=== PATIENT | male | born 1975 | race Caucasian/White ===

== ENCOUNTER 2018-11-24 07:11 | Inpatient (IN) | payer OTHER ==
[2018-11-24] MEDS: PIPER-TAZO 3.375 GM IV (PMX) 100 ML IVPB (07:33)
[2018-11-24 08:15] LABS: ADD MAN DIFF? NO
[2018-11-24] MEDS: CLINDAMYCIN 900 MG/D5W (PMX) 50 ML IVPB ×3 (08:16→20:52)
[2018-11-24] MEDS: SODIUM CHLORIDE 0.9% 1L BAG IV* (08:17)
[2018-11-24 08:20] LABS: WHITE BLOOD COUNT 9.7 10^3/ul (4.8-10.8)
[2018-11-24 08:20] LABS: BASOPHIL # 0.1 10^3/ul (0.0-0.1); BASOPHILS % 0.5 % (0.0-2.0); EOSINOPHILS # 0.2 10^3/ul (0.0-0.5); EOSINOPHILS % 1.7 % (0.0-7.0); HEMOGLOBIN 10.7 g/dl (14.0-18.0); LYMPHOCYTES # 2.8 10^3/ul (0.8-2.9); LYMPHOCYTES % 29.1 % (15.0-51.0); MEAN CORPUSCULAR HEMOGLOBIN 25.5 pg (29.0-33.0); MEAN CORPUSCULAR HGB CONC 31.5 g/dl (32.0-37.0); MEAN CORPUSCULAR VOLUME 81.1 fl (82.0-101.0); MEAN PLATELET VOLUME 9.1 fl (7.4-10.4); MONOCYTE # 0.6 10^3/ul (0.3-0.9); MONOCYTES % 6.3 % (0.0-11.0); NEUTROPHILS % 61.9 % (39.0-77.0); PLATELET COUNT 300 10^3/UL (140-415); RED BLOOD COUNT 4.19 10^6/ul (4.70-6.10); RED CELL DISTRIBUTION WIDTH 14.5 % (11.5-14.5)
[2018-11-24 08:39] LABS: ALANINE AMINOTRANSFERASE 55 IU/L (13-69); ALBUMIN 3.4 g/dl (3.3-4.9); ALKALINE PHOSPHATASE 77 IU/L (42-121); ANION GAP 11 (5-13); ASPARTATE AMINO TRANSFERASE 34 IU/L (15-46); BILIRUBIN,INDIRECT 0.2 mg/dl (0-1.1); BILIRUBIN,TOTAL 0.2 mg/dl (0.2-1.3); BLOOD UREA NITROGEN 13 mg/dl (7-20); CALCIUM 8.7 mg/dl (8.4-10.2); CARBON DIOXIDE 24 mmol/L (21-31); CHLORIDE 103 mmol/L (97-110); CREATININE 0.69 mg/dl (0.61-1.24); Estimated GFR > 60 mL/min (>60); GLUCOSE 142 mg/dl (70-220); POTASSIUM 3.5 mmol/L (3.5-5.1); SODIUM 138 mmol/L (135-144); TOTAL PROTEIN 7.6 g/dl (6.1-8.1)
[2018-11-24 08:45] LABS: ETHANOL < 10.0 mg/dl (0-0)
[2018-11-24 09:15] LABS: INR 1.02; PROTIME 13.5 Sec (11.9-14.9); PT RATIO 1.1
[2018-11-24 09:16] LABS: PARTIAL THROMBOPLASTIN TIME 28.9 Sec (23.0-35.0)
[2018-11-24 09:28] LABS: CHOLESTEROL 130 mg/dl (100-200)
[2018-11-24 09:28] LABS: CHOL/HDL RATIO 7.2 RATIO; HDL CHOLESTEROL 18 mg/dl (27-67); LDL CHOLESTEROL,CALCULATED 92 mg/dl; TRIGLYCERIDES 100 mg/dl (0-149)
[2018-11-24] MEDS ORDERED: ACETAMINOPHEN 325 MG TAB PO (09:30)
[2018-11-24] MEDS ORDERED: ONDANSETRON 4 MG INJ IV ×2 (09:30→10:00)
[2018-11-24] MEDS ORDERED: VANCOMYCIN IV PER PHARMACY XX (10:00)
[2018-11-24] MEDS ORDERED: NACL 0.9% 3 ML SYG IV (10:00)
[2018-11-24] MEDS: VANCOMYCIN 1 GM (PMX) 250 ML IVPB (10:09)
[2018-11-24] MEDS: HYDROmorphONE 1 MG/ML SYG IV (10:26)
[2018-11-24] MEDS: ONDANSETRON 4 MG INJ IV (10:26)
[2018-11-24] MEDS ORDERED: VANCOMYCIN 1 GM in 250 ML IVPB (12:00)
[2018-11-24 12:29] LABS: C-REACTIVE PROTEIN 7.6 mg/dl (0.0-0.9)
[2018-11-24 13:21] LABS: ERYTHROCYTE SEDIMENTATION RATE 75 mm/Hr (0-15)
[2018-11-24] MEDS: MEROPENEM 1 GM/50ML(PMX) 50 ML IVPB ×2 (14:00→23:01)
[2018-11-24] MEDS: METHADONE 5 MG TAB PO ×3 (14:00→21:24)
[2018-11-24] MEDS: VANCOMYCIN 1 GM 250 ML IVPB (15:36)
[2018-11-24] MEDS: INSULIN ASPART [NOVOLOG] 3 ML PEN SC ×3 (15:37→20:59)
[2018-11-24 15:54] LABS: LACTIC ACID 1.8 mmol/L (0.5-2.0)
[2018-11-24 15:54] LABS: IRON 24 ug/dl (35-150)
[2018-11-24 16:03] LABS: % IRON SATURATION 9 % SAT (22-52); TOTAL IRON BINDING CAPACITY 279 ug/dl (241-421)
[2018-11-24 16:39] LABS: PROCALCITONIN 0.07 ng/mL (0.00-0.10)
[2018-11-24] MEDS: LIDOCAINE 1% (MPF) 5 ML VIAL SC (17:22)
[2018-11-24] MEDS: SOD CHLORIDE 0.9% 100 ML (18:28)
[2018-11-24] MEDS: IOHEXOL 100 ML (18:28)
[2018-11-25] MEDS ORDERED: VANCOMYCIN HCL 1.25 GM in SOD CHLORIDE 0.9% 250 ML IVPB
[2018-11-25] MEDS: INSULIN ASPART [NOVOLOG] 3 ML PEN SC ×6 (01:00→21:00)
[2018-11-25] MEDS: ACCU-CHEK XX (01:05)
[2018-11-25] MEDS: VANCOMYCIN HCL 1.25 GM in SOD CHLORIDE 0.9% 250 ML IVPB ×3 (03:34→21:45)
[2018-11-25 07:48] LABS: ADD MAN DIFF? NO
[2018-11-25 07:52] LABS: BASOPHILS % 0.4 % (0.0-2.0); EOSINOPHILS # 0.1 10^3/ul (0.0-0.5); EOSINOPHILS % 0.7 % (0.0-7.0); HEMATOCRIT 33.6 % (42.0-52.0); HEMOGLOBIN 10.8 g/dl (14.0-18.0); LYMPHOCYTES # 2.1 10^3/ul (0.8-2.9); LYMPHOCYTES % 25.1 % (15.0-51.0); MEAN CORPUSCULAR HEMOGLOBIN 25.8 pg (29.0-33.0); MEAN CORPUSCULAR HGB CONC 32.1 g/dl (32.0-37.0); MEAN CORPUSCULAR VOLUME 80.2 fl (82.0-101.0); MEAN PLATELET VOLUME 9.1 fl (7.4-10.4); MONOCYTE # 0.5 10^3/ul (0.3-0.9); MONOCYTES % 5.9 % (0.0-11.0); NEUTROPHIL # 5.7 10^3/ul (1.6-7.5); NEUTROPHILS % 67.1 % (39.0-77.0); PLATELET COUNT 284 10^3/UL (140-415); RED BLOOD COUNT 4.19 10^6/ul (4.70-6.10); RED CELL DISTRIBUTION WIDTH 14.3 % (11.5-14.5)
[2018-11-25 07:52] LABS: WHITE BLOOD COUNT 8.4 10^3/ul (4.8-10.8)
[2018-11-25 08:19] LABS: ALANINE AMINOTRANSFERASE 53 IU/L (13-69); ALBUMIN 3.3 g/dl (3.3-4.9); ALBUMIN/GLOBULIN RATIO 0.82; ALKALINE PHOSPHATASE 77 IU/L (42-121); ANION GAP 6 (5-13); ASPARTATE AMINO TRANSFERASE 35 IU/L (15-46); BILIRUBIN,INDIRECT 0.2 mg/dl (0-1.1); BILIRUBIN,TOTAL 0.2 mg/dl (0.2-1.3); BLOOD UREA NITROGEN 7 mg/dl (7-20); CALCIUM 8.7 mg/dl (8.4-10.2); CARBON DIOXIDE 28 mmol/L (21-31); CHLORIDE 108 mmol/L (97-110); Estimated GFR > 60 mL/min (>60); GLUCOSE 128 mg/dl (70-220); MAGNESIUM 2.2 mg/dl (1.7-2.5); PHOSPHORUS 3.3 mg/dl (2.5-4.9); SODIUM 142 mmol/L (135-144); TOTAL PROTEIN 7.3 g/dl (6.1-8.1)
[2018-11-25] MEDS: MEROPENEM 1 GM/50ML(PMX) 50 ML IVPB ×2 (08:33→21:46)
[2018-11-25] MEDS: ENOXAPARIN 40 MG/0.4 ML SYG SC (08:34)
[2018-11-25] MEDS: METHADONE 5 MG TAB PO (09:22)
[2018-11-25] MEDS: SOD CHLORIDE 0.9% 1,000 ML IV (12:08)
[2018-11-25] MEDS: CLINDAMYCIN 900 MG/D5W (PMX) 50 ML IVPB ×2 (14:21→23:05)
[2018-11-25] MEDS: LORAZEPAM 2 MG INJ IV (17:00)
[2018-11-25] MEDS ORDERED: LORAZEPAM 2 MG INJ IV (17:30)
[2018-11-25] MEDS: METHADONE 10 MG TAB PO (18:15)
[2018-11-25] MEDS ORDERED: FENTAnyl 50 MCG/ML VIAL ×2 (18:17→18:27)
[2018-11-25] MEDS ORDERED: MIDAZOLAM 1 MG/ML 2 ML INJ (18:17)
[2018-11-25] MEDS ORDERED: SEVOFLURANE 15 MIN (18:30)
[2018-11-25] MEDS: POLYMYXIN B 500000 UNIT INJ (18:43)
[2018-11-25] MEDS: BACITRACIN 50000 UNITS INJ (18:43)
[2018-11-25] MEDS ORDERED: ETOMIDATE 20 MG INJ (19:01)
[2018-11-25] MEDS ORDERED: LIDOCAINE 2% (SDV) 5 ML INJ (19:01)
[2018-11-25] MEDS ORDERED: PROPOFOL 20 ML (19:02)
[2018-11-25] MEDS ORDERED: ONDANSETRON 4 MG INJ (19:02)
[2018-11-25] MEDS ORDERED: ROPIVACAINE 0.5 % 30 ML VIAL (19:03)
[2018-11-25] MEDS ORDERED: METOCLOPRAMIDE 10 MG INJ IV (20:00)
[2018-11-25] MEDS ORDERED: FENTAnyl 50 MCG/ML VIAL IV ×2 (20:00)
[2018-11-25] MEDS ORDERED: ONDANSETRON 4 MG INJ IV (20:00)
[2018-11-25] MEDS ORDERED: NALOXONE (0.4 MG/ML) INJ IV (20:00)
[2018-11-25] MEDS ORDERED: HYDROmorphONE 1 MG/5 ML IV SYRINGE IV ×3 (20:00)
[2018-11-25] MEDS ORDERED: DIPHENHYDRAMINE 50 MG INJ IV (20:00)
[2018-11-25] MEDS ORDERED: MEPERIDINE 25 MG INJ IV (20:00)
[2018-11-25 21:39] LABS: VANCOMYCIN,TROUGH 9.2 ug/ml (10.0-20.0)
[2018-11-26] MEDS ORDERED: DEXTROSE 50% 50 ML SYRINGE IV ×2 (01:00)
[2018-11-26] MEDS ORDERED: GLUCOSE GEL 15 GRAM TUBE PO ×2 (01:00)
[2018-11-26] MEDS ORDERED: GLUCOSE GEL 15 GRAM TUBE BUCCAL (01:00)
[2018-11-26] MEDS ORDERED: GLUCAGON 1 MG INJ IM (01:00)
[2018-11-26] MEDS: ACCU-CHEK XX ×2 (01:25)
[2018-11-26] MEDS: VANCOMYCIN HCL 1.25 GM in SOD CHLORIDE 0.9% 250 ML IVPB ×3 (04:45→20:48)
[2018-11-26 05:36] LABS: ADD MAN DIFF? NO
[2018-11-26 05:46] LABS: BASOPHIL # 0.1 10^3/ul (0.0-0.1); BASOPHILS % 0.4 % (0.0-2.0); EOSINOPHILS # 0.1 10^3/ul (0.0-0.5); EOSINOPHILS % 0.7 % (0.0-7.0); HEMATOCRIT 33.6 % (42.0-52.0); HEMOGLOBIN 10.8 g/dl (14.0-18.0); LYMPHOCYTES # 2.6 10^3/ul (0.8-2.9); LYMPHOCYTES % 22.6 % (15.0-51.0); MEAN CORPUSCULAR HEMOGLOBIN 25.7 pg (29.0-33.0); MEAN CORPUSCULAR HGB CONC 32.1 g/dl (32.0-37.0); MEAN CORPUSCULAR VOLUME 79.8 fl (82.0-101.0); MEAN PLATELET VOLUME 9.6 fl (7.4-10.4); MONOCYTE # 0.5 10^3/ul (0.3-0.9); MONOCYTES % 4.5 % (0.0-11.0); NEUTROPHIL # 8.3 10^3/ul (1.6-7.5); NEUTROPHILS % 70.9 % (39.0-77.0); PLATELET COUNT 293 10^3/UL (140-415); RED BLOOD COUNT 4.21 10^6/ul (4.70-6.10); RED CELL DISTRIBUTION WIDTH 14.2 % (11.5-14.5)
[2018-11-26 05:46] LABS: WHITE BLOOD COUNT 11.7 10^3/ul (4.8-10.8)
[2018-11-26] MEDS: CLINDAMYCIN 900 MG/D5W (PMX) 50 ML IVPB (05:47)
[2018-11-26] MEDS: SOD CHLORIDE 0.9% 1,000 ML IV ×2 (05:53→08:00)
[2018-11-26 06:07] LABS: ANION GAP 8 (5-13); BLOOD UREA NITROGEN 9 mg/dl (7-20); CALCIUM 8.6 mg/dl (8.4-10.2); CARBON DIOXIDE 27 mmol/L (21-31); CHLORIDE 105 mmol/L (97-110); CREATININE 0.62 mg/dl (0.61-1.24); Estimated GFR > 60 mL/min (>60); GLUCOSE 102 mg/dl (70-220); MAGNESIUM 2.1 mg/dl (1.7-2.5); PHOSPHORUS 3.7 mg/dl (2.5-4.9); POTASSIUM 3.8 mmol/L (3.5-5.1); SODIUM 140 mmol/L (135-144)
[2018-11-26] MEDS: INSULIN ASPART [NOVOLOG] 3 ML PEN SC ×4 (08:00→20:48)
[2018-11-26] MEDS: MEROPENEM 1 GM/50ML(PMX) 50 ML IVPB (09:03)
[2018-11-26] MEDS: ENOXAPARIN 40 MG/0.4 ML SYG SC (09:42)
[2018-11-26] MEDS: SOD FERRIC GLUC COMPLX 125 MG in SOD CHLORIDE 0.9% 100 ML IVPB (13:17)
[2018-11-26] MEDS: METHADONE (1 MG/ML 5 ML PO UD SYG) PO (13:17)
[2018-11-26] MEDS: RIFAMPIN 300 MG CAP PO (13:19)
[2018-11-26 15:38] LABS: AMPHETAMINE/METHAMPHETAMINE Negative (NEGATIVE); BARBITURATES Negative (NEGATIVE); BENZODIAZEPINES Negative (NEGATIVE); CANNABINOIDS Negative (NEGATIVE); COCAINE Negative (NEGATIVE); OPIATES Positive (NEGATIVE)
[2018-11-26] MEDS: ACETAMINOPHEN 325 MG TAB PO (22:47)
[2018-11-27] MEDS: ACCU-CHEK XX ×2 (02:00)
[2018-11-27] MEDS: VANCOMYCIN HCL 1.25 GM in SOD CHLORIDE 0.9% 250 ML IVPB ×3 (04:11→20:33)
[2018-11-27] MEDS: MAGNESIUM HYDROXIDE 30ML CUP PO (04:11)
[2018-11-27] MEDS: INSULIN ASPART [NOVOLOG] 3 ML PEN SC ×4 (08:00→20:37)
[2018-11-27] MEDS: METHADONE (1 MG/ML 5 ML PO UD SYG) PO (09:37)
[2018-11-27] MEDS: ENOXAPARIN 40 MG/0.4 ML SYG SC (09:37)
[2018-11-27] MEDS: RIFAMPIN 300 MG CAP PO (09:43)
[2018-11-27] MEDS: ACETAMINOPHEN 325 MG TAB PO (09:43)
[2018-11-27 10:56] LABS: ADD MAN DIFF? NO
[2018-11-27 11:03] LABS: WHITE BLOOD COUNT 6.7 10^3/ul (4.8-10.8)
[2018-11-27 11:03] LABS: BASOPHILS % 0.5 % (0.0-2.0); EOSINOPHILS # 0.1 10^3/ul (0.0-0.5); EOSINOPHILS % 1.5 % (0.0-7.0); HEMATOCRIT 37.2 % (42.0-52.0); LYMPHOCYTES # 1.9 10^3/ul (0.8-2.9); LYMPHOCYTES % 29.1 % (15.0-51.0); MEAN CORPUSCULAR HEMOGLOBIN 25.3 pg (29.0-33.0); MEAN CORPUSCULAR HGB CONC 32.3 g/dl (32.0-37.0); MEAN CORPUSCULAR VOLUME 78.3 fl (82.0-101.0); MEAN PLATELET VOLUME 9.6 fl (7.4-10.4); MONOCYTE # 0.4 10^3/ul (0.3-0.9); MONOCYTES % 5.3 % (0.0-11.0); NEUTROPHIL # 4.2 10^3/ul (1.6-7.5); NEUTROPHILS % 63.1 % (39.0-77.0); PLATELET COUNT 325 10^3/UL (140-415); RED BLOOD COUNT 4.75 10^6/ul (4.70-6.10); RED CELL DISTRIBUTION WIDTH 13.8 % (11.5-14.5)
[2018-11-27 11:27] LABS: ANION GAP 8 (5-13); BLOOD UREA NITROGEN 11 mg/dl (7-20); CALCIUM 8.9 mg/dl (8.4-10.2); CARBON DIOXIDE 25 mmol/L (21-31); CHLORIDE 106 mmol/L (97-110); Estimated GFR > 60 mL/min (>60); GLUCOSE 119 mg/dl (70-220); POTASSIUM 4.1 mmol/L (3.5-5.1); SODIUM 139 mmol/L (135-144)
[2018-11-27] MEDS: SOD FERRIC GLUC COMPLX 125 MG in SOD CHLORIDE 0.9% 100 ML IVPB (15:29)
[2018-11-28] MEDS: ACCU-CHEK XX ×2 (02:00)
[2018-11-28] MEDS: VANCOMYCIN HCL 1.25 GM in SOD CHLORIDE 0.9% 250 ML IVPB ×2 (04:02→12:39)
[2018-11-28 05:41] LABS: ADD MAN DIFF? NO
[2018-11-28 05:43] LABS: WHITE BLOOD COUNT 7.1 10^3/ul (4.8-10.8)
[2018-11-28 05:43] LABS: BASOPHIL # 0.1 10^3/ul (0.0-0.1); BASOPHILS % 0.7 % (0.0-2.0); EOSINOPHILS # 0.1 10^3/ul (0.0-0.5); EOSINOPHILS % 1.4 % (0.0-7.0); HEMOGLOBIN 12.7 g/dl (14.0-18.0); LYMPHOCYTES # 2.4 10^3/ul (0.8-2.9); LYMPHOCYTES % 33.3 % (15.0-51.0); MEAN CORPUSCULAR HEMOGLOBIN 25.3 pg (29.0-33.0); MEAN CORPUSCULAR HGB CONC 32.6 g/dl (32.0-37.0); MEAN CORPUSCULAR VOLUME 77.8 fl (82.0-101.0); MEAN PLATELET VOLUME 9.4 fl (7.4-10.4); MONOCYTE # 0.6 10^3/ul (0.3-0.9); MONOCYTES % 8.3 % (0.0-11.0); NEUTROPHILS % 55.9 % (39.0-77.0); PLATELET COUNT 353 10^3/UL (140-415); RED BLOOD COUNT 5.01 10^6/ul (4.70-6.10); RED CELL DISTRIBUTION WIDTH 13.9 % (11.5-14.5)
[2018-11-28 06:14] LABS: ANION GAP 8 (5-13); BLOOD UREA NITROGEN 14 mg/dl (7-20); CALCIUM 9.3 mg/dl (8.4-10.2); CARBON DIOXIDE 25 mmol/L (21-31); CHLORIDE 105 mmol/L (97-110); CREATININE 0.63 mg/dl (0.61-1.24); Estimated GFR > 60 mL/min (>60); GLUCOSE 119 mg/dl (70-220); POTASSIUM 4.5 mmol/L (3.5-5.1); SODIUM 138 mmol/L (135-144)
[2018-11-28] MEDS: INSULIN ASPART [NOVOLOG] 3 ML PEN SC ×3 (08:00→17:41)
[2018-11-28] MEDS: RIFAMPIN 300 MG CAP PO (08:04)
[2018-11-28] MEDS: ENOXAPARIN 40 MG/0.4 ML SYG SC (08:07)
[2018-11-28] MEDS: METHADONE (1 MG/ML 5 ML PO UD SYG) PO (08:07)
[2018-11-28 11:29] LABS: C-REACTIVE PROTEIN 1.3 mg/dl (0.0-0.9); VANCOMYCIN,TROUGH 17.7 ug/ml (10.0-20.0)
[2018-11-28 12:21] LABS: PROCALCITONIN 0.04 ng/mL (0.00-0.10)
[2018-11-28] MEDS: SOD FERRIC GLUC COMPLX 125 MG in SOD CHLORIDE 0.9% 100 ML IVPB (13:00)
[2018-11-28] MEDS: VANCOMYCIN 1 GM 250 ML IVPB (20:00)
== END 2018-11-28 21:55 | disposition home health service (06) | DRG 854 ==
LOC: 2NE 11-26 16:45 → E/R 07:11 → 2NE 09:04
PROVIDERS: Hospitalist
PROC: 0JBP0ZZ Excision of Left Lower Leg Subcutaneous Tissue and Fascia, Open Approach (ICD-10-PCS; 2018-11-25 16:30)
PROC: 0JBP0ZZ Excision of Left Lower Leg Subcutaneous Tissue and Fascia, Open Approach (ICD-10-PCS; 2018-11-25 16:30)
PROC: 02HV33Z Insertion of Infusion Device into Superior Vena Cava, Percutaneous Approach (ICD-10-PCS; principal; 2018-11-25 18:14)
DX: A41.9 Sepsis, unspecified organism (principal); L03.116 Cellulitis of left lower limb; L02.416 Cutaneous abscess of left lower limb; L97.229 Non-pressure chronic ulcer of left calf with unspecified severity; B19.20 Unspecified viral hepatitis C without hepatic coma; D50.9 Iron deficiency anemia, unspecified; E66.9 Obesity, unspecified; R73.03 Prediabetes; F17.200 Nicotine dependence, unspecified, uncomplicated; B95.62 Methicillin resistant Staphylococcus aureus infection as the cause of diseases classified elsewhere; B95.5 Unspecified streptococcus as the cause of diseases classified elsewhere; Z68.30 Body mass index [BMI] 30.0-30.9, adult
CPT/HCPCS: 36569; 71045; 73590; 73706; 73718; 76937; 80048; 80053; 80061; 80202; 80307; 82962; 83036; 83540; 83605; 83735; 84100; 84145; 85025; 85610; 85651; 85730; 86140; 87040-91; 87070; 87075; 87086; 87102; 87116; 93306; 93922; 93970; 96374; 96375; 99285-25